=== PATIENT | female | born 1995 | race Caucasian/White ===

== ENCOUNTER 2017-01-23 17:07 | Emergency (ER) | payer OTHER ==
[~2017-01-23 17:07] MED LIST: NO MEDICATIONS; PERCOCET7.5 PO
[2017-01-23] MEDS ORDERED: NO MEDICATIONS (17:16)
== END 2017-01-23 17:56 | disposition home or self-care (01) ==
LOC: SED 17:07
DX: S16.1XXA Strain of muscle, fascia and tendon at neck level, initial encounter (principal); F17.210 Nicotine dependence, cigarettes, uncomplicated; V43.62XA Car passenger injured in collision with other type car in traffic accident, initial encounter
CPT/HCPCS: 99283